=== PATIENT | female | born 1985 | race Caucasian/White ===

== ENCOUNTER 2016-11-19 16:35 | Outpatient (CLI) | payer MEDICAID ==
[~2016-11-19] VITALS: Ht 154.9 cm; Wt 62.3 kg
[2016-11-19 17:35] VITALS: Ht 154.9 cm; Wt 62.3 kg
[2016-11-19 17:36] VITALS: BP 116/60; PULSE 66; RESP 18
[2016-11-19] MEDS ORDERED: IRON1TAB78 PO (17:39)
[2016-11-19] MEDS ORDERED: PREN1TAB62 PO (17:39)
[2016-11-19] MEDS ORDERED: CALC-143 PO (17:40)
[2016-11-19 18:32] LABS: ADD UMIC NO; URINE BILIRUBIN (Dip) NEGATIVE (NEGATIVE); URINE BLOOD (Dip) NEGATIVE (NEGATIVE); URINE COLOR LT. YELLOW (YELLOW); URINE GLUCOSE (Dip) NEGATIVE (NEGATIVE); URINE KETONES (Dip) NEGATIVE (NEGATIVE); URINE LEUKOCYTE ESTERASE (Dip) NEGATIVE (NEGATIVE); URINE NITRITE (Dip) NEGATIVE (NEGATIVE); URINE TOTAL PROTEIN (Dip) NEGATIVE (NEGATIVE); URINE UROBILINOGEN (Dip) 0.2 E.U./dL (0.1-1.0)
--- NOTE | 2016-11-19 18:39 | RADRPT ---
PROCEDURE: OB ultrasound for biophysical profile CLINICAL INDICATION: . Pain. TECHNIQUE: Multiple sonographic images of the pelvis were obtained. Transabdominal view of the gr avid uterus are available for review. The images were reviewed on a PACS workstation. COMPARISON: None FINDINGS: breathing movement = 2/2 tone = 2/2 motion = 2/2 CAR[place] = 2/2 CAROL[place] = 11.7 cm Single live intrauterine with cardiac activity. Cephalic presentation, posterior placenta. IMPRESSION: 1. Single viable intrauterine gestation. 2. Biophysical profile = 03/25. 3. CAROLINA = 11.7 cm. RPTAT: PP .Homar Cage MD, Date Time Electronically viewed and signed by .Homar Cage MD, on 11/19/2016 18:39 .B/
--- NOTE | 2016-11-19 19:13 | CONS ---
Date/Time of Note Date/Time of Note DATE: 11/19/16 TIME: 19:05 Consultation Date/Type/Reason Admit Date/Time November 19, 2016 OB triage consult Reason for Consultation This patient is a 31 years old 2 para 2 2 who had 1 spontaneous vaginal delivery and 1 section about 10 years ago she went to [facility] and from there she was transferred here with her main complaint of 48 low back pain contractions and lower abdominal pain Her EDC is February 14, 2017 which make her 27 weeks and 4 days now so far during this apparently she did not have any major medical problem On reviewing her complaint she is complaining of contractions abdominal pain every 10-15 of contractions back and extremities on examination she is a well- developed well-nourished lady midterm her ear nose throat appears to be normal neck is normal no neck vein distention no thyromegaly no lymph node enlargement anywhere in her body her chest is clear for the overall heart normal sinus rhythm no murmur abdomen is soft fetus have been normal movement no true tenderness Although she is complaining of a slight lower abdominal and suprapubic area pain but we do not see any contractions on her trace Extremities are normal no edema no varicosities Knee-jerk reflexes normal On pelvic examination vulva and vagina is normal cervix is closed and long no evidence of bleeding or leaking The lab test that she had in the other clinic were normal her vital signs appear to be normal blood pressure 116/60 pulse rate 66 respiration 18 temperature 97.9 her urinalysis is normal biophysical profile was reported 8/8 her amniotic fluid index 11.77 Laboratory Tests Test 11/19/16 17:45 Urine Color LT. YELLOW Urine Clarity SLIGHTLY CLOUDY Urine pH 7.5 Urine Specific [place] 1.010 Urine Ketones NEGATIVE Urine Nitrite NEGATIVE Urine Bilirubin NEGATIVE Urine Urobilinogen 0.2 E.U./dL Urine Leukocyte Esterase NEGATIVE Urine Hemoglobin NEGATIVE Urine Glucose NEGATIVE% Urine Total Protein NEGATIVE Laboratory Tests Test 11/19/16 17:45 Urine Color LT. YELLOW Urine Clarity SLIGHTLY CLOUDY Urine pH 7.5 Urine Specific [place] 1.010 Urine Ketones NEGATIVE Urine Nitrite NEGATIVE Urine Bilirubin NEGATIVE Urine Urobilinogen 0.2 E.U./dL Urine Leukocyte Esterase NEGATIVE Urine Hemoglobin NEGATIVE Urine Glucose NEGATIVE% Urine Total Protein NEGATIVE Constitutional: No chills, No diaphoresis, No disoriented, No febrile, No improved, No no complaints, No other, No poor po, No requiring IVF, No requiring O2 Eyes: No discharge, No no complaints, No other, No pain, No redness, No visual change ENT: No bleeding, No congestion, No discharge, No dysphagia, No no complaints, No other, No pain, No sore throat Respiratory: No cough, No no complaints, No other, No pain, No pleuritic pain, No shortness of breath, No sputum, No wheezing Cardiovascular: No chest pain, No edema, No lightheadedness, No no complaints, No orthopenea, No other, No palpitations, No paroxysmal nocturnal dyspnea Gastrointestinal: other (No true abdominal pain we could not detect any contractions no CVA tenderness), No blood, No constipation, No decreased appetite, No diarrhea, No flatus, No nausea, No no complaints, No pain, No passing stool, No vomiting Genitourinary: other (As I mentioned on pelvic examination the cervix was long and closed), No bleeding, No discharge, No dysuria, No flank pain, No hematuria, No no complaints Musculoskeletal: No back pain, No bone/joint pain, No neck pain, No no complaints, No other, No restricted range of motion, No swelling Skin: No bruising, No erythema, No laceration, No no complaints, No other, No pruritis, No rash, No skin lesions Neurologic: No confusion, No dizziness, No focal-weakness, No headache, No no complaints, No other, No seizure, No syncope Endocrine: No dry skin, No no complaints, No other, No polydypsia, No polyuria , No temp intolerance Additional Comments With these finding apparently she is not in any acute condition not in labor Disposition I explained to to herself that the baby looks okay she is not in active labor she can go home and take it easy and rest she has any pain she can take Tylenol in case of bleeding more severe symptoms she can return again to the clinic and we will see her again End of dictation thank Social History Smoking Status: Never smoker Exam/Review of Systems Vital Signs Vitals Vital Signs Date Time Temp Pulse Resp B/P Pulse Ox O2 Delivery O2 Flow Rate FiO2 11/19/16 17:36 97.9 66 18 116/60 Room Air Results Results 24 hrs Laboratory Tests Test 11/19/16 17:45 Urine Color LT. YELLOW Urine Clarity SLIGHTLY CLOUDY Urine pH 7.5 Urine Specific [place] 1.010 Urine Ketones NEGATIVE Urine Nitrite NEGATIVE Urine Bilirubin NEGATIVE Urine Urobilinogen 0.2 E.U./dL Urine Leukocyte Esterase NEGATIVE Urine Hemoglobin NEGATIVE Urine Glucose NEGATIVE Urine Total Protein NEGATIVE BRIAN UMANA MD Nov 19, 2016 19:13
--- NOTE | 2016-11-19 19:21 | TRIAGE ---
OB Triage Datetime Report Generated by CPN: 11/19/2016 19:21 Datetime: 11/19/2016 18:52 Vaginal Exam Dilatation (cms): 0.0 Effacement (%): 0 Station: -3 Exam By: DR. FOROOHAR Membrane Status: Intact Datetime: 11/19/2016 17:47 Assessment Type: Admission Assessment Maternal Assessment Level of Consciousness: Fully Conscious DTR's/Clonus: DTRs 2+; No Clonus Headache: Denies Blurred Vision: No Respiratory Effort: Unlabored; Regular Rhythm; Equal Expansion Breath Sounds, Left: Clear and Equal Breath Sounds, Right: Clear and Equal Nausea/Vomiting: Denies RUQ Epigastric Pain: Denies Lower Extremities Edema: None Degree: None Upper Extremities Edema: None Degree: None Facial Edema: None Fall Risk Assessment History of Falling: (0) No Secondary Diagnosis: (0) No Ambulatory Aid: (0) Bedrest/Nurse Assist IV Therapy: (0) No Gait: (0) Normal/Bedrest/Immobile Mental Status: (0) Oriented to Own Ability Fall Score: 0 Fall Risk Score Definition: No Risk: No action required Datetime: 11/19/2016 17:41 Pain Assessment Pain Scale: 8 Pain Presence: Intermittent Pain Type: Pressure Pain Location: Abdomen; Back Pain Relief Measures: Comfort Measures Datetime: 11/19/2016 17:37 Labor Evaluation Frequency: 0 Monitor Mode: External Pattern: Normal: <= 5 Contractions in 10 Minutes Resting Tone [place]: Relaxed Heart Rate FHR Baseline Rate: 135 Monitor Mode: External US Variability: Moderate 6-25 bpm Accelerations: 15X15 Decelerations: None Category: Category I Datetime: 11/19/2016 17:29 Time of Arrival: 11/19/2016 16:30 EGA: 27.4 Arrived By: Stretcher Arrived From: Other Hospital Chief Complaint: PT. BROUGHT HERE BY RESCUE FROM [facility] FOR C/O ABDOMINAL PAIN Movement: Present Contractions: Denies/Absent Rupture of Membranes: Denies Vaginal Bleeding: None Vaginal Discharge: Denies Recent Sexual Intercouse: Denies Abdominal Trauma: Not Applicable Time Provider Notified: 11/19/2016 17:43 Provider Notified: DR. UMANA Initial Plan: TOCO/ US Datetime: 11/19/2016 16:46 Stage of : OB Triage Temperature Route: Oral Pain Assessment Pain Scale: 9 Pain Presence: Intermittent Pain Location: Abdomen Pain Relief Measures: Comfort Measures Datetime: 11/19/2016 16:44 Stage of : OB Triage
--- NOTE | 2016-11-19 19:22 | TRIAGE ---
OB Triage Datetime Report Generated by CPN: 11/19/2016 19:22 Datetime: 11/19/2016 17:29 Patient Complaints: Back Pain
== END 2016-11-19 19:10 | disposition home or self-care (01) ==
LOC: OBT 16:35 → L-D 16:36 → OBT 19:10
DX: O26.892 Other specified pregnancy related conditions, second trimester (principal); R10.9 Unspecified abdominal pain; M54.9 Dorsalgia, unspecified; Z3A.27 27 weeks gestation of pregnancy
CPT/HCPCS: 76818; 81003